=== PATIENT | female | born 1990 | race Caucasian/White ===

== ENCOUNTER 2016-09-26 13:30 | Inpatient (IN) | payer OTHER ==
[2016-09-26] MEDS ORDERED: fentaNYL* 50 MCG/ML 2 ML VIAL (100 MCG VIAL) IV SLOW PU ONE (20:27)
[2016-09-26 20:56] LABS: Hematocrit 38 % (35-47); Hemoglobin 12.7 g/dl (12.0-16.0); Mean Corpuscular HGB Conc 34 g/dl (31-36); Mean Corpuscular Hemoglobin 30 pg (27-31); Mean Corpuscular Volume 89 fL (80-97); Mean Platelet Volume 9 um3 (7.4-10.4); Red Blood Count 4.25 10^6/ul (4.0-5.4); Red Cell Distribution Width 13 % (10.5-15); White Blood Count 17.8 10^3/ul (3.5-10.8)
[2016-09-26] MEDS ORDERED: OBEPIDURAL* 250 ML ONE (21:09)
[2016-09-26] MEDS ORDERED: Phenylephrine IV* 40 MCG/ML 10 ML SYRINGE IV PUSH PRN (21:50)
[2016-09-26] MEDS ORDERED: EPHEDrine (Pressors)* 50 MG/ML VIAL IV PUSH PRN (21:50)
[2016-09-26] MEDS ORDERED: Sodium Citrate/Citric Acid* 15 ML UDC PO PRN (21:50)
[2016-09-26] MEDS ORDERED: Famotidine TAB* 20 MG PO PRN (21:50)
[2016-09-26] MEDS ORDERED: OBEPIDURAL* 250 ML EPIDURAL SCH (22:00)
[2016-09-27] MEDS ORDERED: Oxytocin in LR* 20 UNITS/1,000 ML BAG IVPB ONE (01:58)
[2016-09-27] MEDS ORDERED: Acetaminophen TAB* 325 MG PO PRN (04:33)
[2016-09-27] MEDS ORDERED: Dibucaine 1% 28.35 GM TUBE PR PRN (04:33)
[2016-09-27] MEDS ORDERED: Witch Hazel PAD* JAR TOPICAL PRN (04:33)
[2016-09-27] MEDS ORDERED: oxyCODONE/Acetamin 5/325 MG* TAB PO PRN (04:33)
[2016-09-27] MEDS ORDERED: Glycerin ADULT SUPP PR PRN (04:33)
[2016-09-27] MEDS ORDERED: Lidocaine 1% MPF* 2 ML VIAL ONE (05:00)
[2016-09-27] MEDS ORDERED: Simethicone CHEW TAB* 80 MG PO SCH (08:30)
[2016-09-27] MEDS: Docusate CAP* 100 MG PO SCH ×3 (08:31→20:51)
[2016-09-27] MEDS: Ibuprofen TAB* 600 MG PO PRN ×3 (08:31→20:52)
[2016-09-27] MEDS ORDERED: Hydrocortisone 1% CREAM* 30 GM TUBE TOPICAL PRN (08:44)
--- NOTE | 2016-09-27 16:29 | PTEDU ---
Patient Name: VENTURA HE VENTURA HE selected video: Follow Me Mum: [facility] Successful to view on 07/2016 at 4:27:29 PM [id number]
[2016-09-28] MEDS: Ibuprofen TAB* 600 MG PO PRN ×4 (03:51→23:08)
[2016-09-28 06:36] LABS: Hematocrit 31 % (35-47); Hemoglobin 10.3 g/dl (12.0-16.0); Mean Corpuscular HGB Conc 34 g/dl (31-36); Mean Corpuscular Hemoglobin 31 pg (27-31); Mean Corpuscular Volume 90 fL (80-97); Mean Platelet Volume 8 um3 (7.4-10.4); Red Blood Count 3.39 10^6/ul (4.0-5.4); Red Cell Distribution Width 14 % (10.5-15)
[2016-09-28] MEDS ORDERED: Ferrous Gluconate TAB* 324 MG TAB PO SCH (09:00)
[2016-09-28] MEDS: Docusate CAP* 100 MG PO SCH ×3 (09:32→23:08)
[2016-09-29] MEDS: Ibuprofen TAB* 600 MG PO PRN ×2 (05:58→11:42)
[2016-09-29 08:36] VITALS: BP 114/64
[2016-09-29] MEDS: Docusate CAP* 100 MG PO SCH ×2 (08:54→14:30)
== END 2016-09-29 18:00 | disposition home or self-care (01) | DRG 775 ==
LOC: MCHOBOUT 13:30 → MCHOB 14:32
PROVIDERS: ADMIT Midwife; ATTEND Midwife
PROC: 10E0XZZ Delivery of Products of Conception, External Approach (ICD-10-PCS; principal; 2016-09-27)
DX: O48.0 Post-term pregnancy (principal); O77.0 Labor and delivery complicated by meconium in amniotic fluid; O69.9XX0 Labor and delivery complicated by cord complication, unspecified, not applicable or unspecified; Z37.0 Single live birth; Z3A.40 40 weeks gestation of pregnancy
CPT/HCPCS: 36415; 85025; 86850; 86900; 86901; A9270-GY; J3010